=== PATIENT | female | born 1950 | race Caucasian/White ===

== ENCOUNTER 2017-08-08 13:21 | Day surgery (SDC) | payer MEDICARE ==
[~2017-08-08 13:21] MED LIST: ALBUTEROL2 PUFFS/17 IN; ALENDRONATE SOD70 M1 PO; ASCRIPTIN325 MG PO; ASPIRIN 81MG TA81 MG PO; ASPIRIN CHILDRE81 M1 PO; BENZONATATE100 MG PO; BUSPAR 10MG TAB10 MG PO; CIPRO 500MG TA500 MG PO; CITRUCEL WITH500 MG PO; CLONAZEPAM0.5 M1 PO; COREG 12.5 MG12.5 MG PO; DIAZEPAM5 M1 PO; DILAUDID2 MG PO; DOXEPIN10 MG PO; FLUOXETINE20 MG PO; ISORDIL 10MG. T10 MG PO; LANOXIN0.125 MG PO; LISINOPRIL 20MG20 MG PO; LOVASTATIN20 MG PO; MACROBID 100MG100 MG PO; METOPROLOL TART50 MG PO; METOPROLOL25 MG PO; MIRALAX(PO17 GM/1 PA PO; NORVASC 5MG. TAB5 MG PO; PLAVIX 75MG TAB75 MG PO; PLAVIX75 MG PO; PRAVASTATIN 40M40 MG PO; PROTONIX 40MG T40 MG PO; PROZAC20 MG PO; TRAMADOL 50MG T50 M1 PO; VISTARIL25 M1 PO; VITAMIN D31000 IU PO; XANAX 1MG TABLET1 MG PO; XANAX0.5 MG PO
--- NOTE | 2017-08-08 14:51 | Operative Note ---
Colonoscopy ([facility]ryl) Procedure date: 08/08/17 Date of : 46 Procedure:Colonoscopy Colonoscopy Indications: Mrs. Del Cid is a 66-year-old female with abdominal cramps and obstipation. The patient did have a colonoscopy in 2014 and had a single ascending polyp ( hyperplastic polypnon-precancerous) removed. Her sister had cervical cancer but she reports no family history of colon cancer. The patient reports no rectal bleeding or weight loss. She is taking the MiraLAX plus Benefiber daily. Performing Provider: Ranjit Andrews MD Referrring Provider: Kaushal King M.D. Sedation: MAC sedation Procedure: Prior to the procedure, a history and physical exam was performed, and patient medications and allergies were reviewed. The risks and benefits of the procedure and the sedation options and risks were discussed with the patient. All questions were answered and informed consent was obtained. Patient identification and proposed procedure were verified by the physician and the nurse. The patient was placed in a left lateral decubitus position. Throughout the procedure, the patient's blood pressure, pulse, and oxygen saturations were monitored continuously. Findings: On digital rectal examination there was normal rectal tone. There were no external hemorrhoids. The colonoscope was introduced through the anal canal to the rectum and advanced to the cecum. The ileocecal valve and appendiceal orifice were identified. The scope was advanced a short distance into the ileum which appeared grossly normal. The scope was then withdrawn into the colon. The cecum, ascending and transverse colon and mucosa were grossly normal. There were scattered diverticuli throughout the descending and sigmoid colon (LEFT colon). The rectum itself was normal. Upon retroflexion within the rectum there were grade 1-2 internal hemorrhoids. Impressions: 1. Extensive left-sided diverticulosis 2. Grade 1-2 internal hemorrhoids Recommendations: The patient will not require screening/surveillance colonoscopy again for 10 years by ACS guidelines. 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 I would continue MiraLAX plus improved fiber bulk and treatment for spasm/visceral sensitivity. I will discuss the findings with the patient and family. Complications: None EBL (ml): 0 at 2281
[2017-08-08 16:55] VITALS: BP 123/75
== END 2017-08-08 15:23 | disposition home or self-care (01) ==
LOC: SDC 13:21
PROVIDERS: Internal Medicine Gastroenterology
PROC: 0DJD8ZZ Inspection of Lower Intestinal Tract, Via Natural or Artificial Opening Endoscopic (ICD-10-PCS; principal; 2017-08-08 14:30)
DX: Z12.11 Encounter for screening for malignant neoplasm of colon (principal); K57.30 Diverticulosis of large intestine without perforation or abscess without bleeding; K64.0 First degree hemorrhoids; K64.1 Second degree hemorrhoids; Z80.49 Family history of malignant neoplasm of other genital organs